=== PATIENT | female | born 1960 | race Caucasian/White ===

== ENCOUNTER → 2020-03-07 | Day surgery (SDC) | payer MEDICAID ==
[~2020-03-07] MED LIST: EPINEPHrine 10 ML SYRINGE (0.1 MG/ML) MISCELLANE ONE; IV FLUID CONTINUATION 1,000 ML IV ONE; LACTATED RINGERS 1,000 ML IV ONE; LACTATED RINGERS 1,000 ML IV SCH; LIDOCAINE 1% (10MG/ML) FOR IV START INTRADERMA PRN; LIDOCAINE 1% INJ 10MG/ML (20 ML MDV) ONE; ONDANSETRON 4 MG/2 ML VIAL ONE; PROPOFOL 10 MG/ML 20 ML VIAL IV ONE; SUCCINYLCHOLINE CHLORIDE 100 MG/5 ML SYR IV ONE; fentaNYL (PF) 50 MCG/ML 2 ML AMP ONE
[2020-03-07 10:35] LABS: Glucose,Whole Blood 108 mg/dL (75-99)
--- NOTE | 2020-03-07 11:03 | XR ---
EXAMINATION TYPE: XR chest 2V DATE OF EXAM: 03/07/2020 HISTORY: Shortness of breath. pre op bronch COMPARISON: None. TECHNIQUE: Single view of the chest is submitted. FINDINGS: Demonstrated are scattered senescent parenchymal change. Airspace consolidation throughout the right lung persists. Correlate for underlying pneumonia. The le ft lung is relatively clear. The heart is stable. Hilar and mediastinal structures are within normal limits. Degenerative changes are seen of the dorsal spine. IMPRESSION: 1. Airspace consolidation throughout the right lung persists. Correlate for underlying pneumonia. Th e left lung is relatively clear.
[2020-03-07 11:16] LABS: Basophils # (A) 0.1 k/uL (0-0.2); Basophils % (A) 0 %; Eosinophils # (A) 0.3 k/uL (0-0.7); Eosinophils % (A) 2 %; HCT 49.7 % (34.0-46.0); HGB 15.5 gm/dL (11.4-16.0); Lymphocytes # (A) 1.2 k/uL (1.0-4.8); Lymphocytes % (A) 7 %; MCH 27.9 pg (25.0-35.0); MCHC 31.1 g/dL (31.0-37.0); MCV 89.6 fL (80.0-100.0); Mean Platelet Volume 8.2; Monocytes # (A) 0.9 k/uL (0-1.0); Monocytes % (A) 5 %; Neutrophils # (A) 13.9 k/uL (1.3-7.7); Neutrophils % (A) 84 %; Platelet Count 356 k/uL (150-450); RBC 5.55 m/uL (3.80-5.40); RDW 13.6 % (11.5-15.5); WBC 16.4 k/uL (3.8-10.6)
[2020-03-07 11:29] LABS: INR 1.1 (<1.2); Partial Thromboplastin Time 25.6 sec (22.0-30.0); Prothrombin Time 11.1 sec (9.0-12.0)
--- NOTE | 2020-03-07 12:51 | FL ---
Fluoroscopy INDICATION: Pain FINDINGS: Fluoroscopy time: 27 seconds. Images obtained: 1. IMPRESSIONS: 1. Documentation of fluoroscopy.
[2020-03-07 12:53] VITALS: TEMP 96.5
[2020-03-07 13:13] VITALS: BP 113/72; PULSE 103; RESP 18
--- NOTE | 2020-03-07 13:27 | XR ---
EXAMINATION TYPE: XR chest 1V portable DATE OF EXAM: 03/07/2020 COMPARISON: 03/07/2020 earlier exam INDICATION: Post bronchoscopy multiple right-sided biopsies TECHNIQUE: Frontal chest view is obtained. FINDINGS: The heart size is normal. The pulmonary vasculature is normal. Right upper and right lower lobe infiltrates are present. There is mild elevation of the minor fissur e. Some resolving atelectasis could be considered. Pneumonia including atypical pneumonia should be c onsidered.. IMPRESSION: 1. No pneumothorax post bronchoscopy. 2. Diffuse infiltrate within the right lung
--- NOTE | 2020-03-24 22:39 | P.PCN ---
Date of Procedure: 03/07/20 Preoperative Diagnosis: Right lower lobe persistent pneumonia Postoperative Diagnosis: As above Procedure(s) Performed: Bronchoscopy, bronchial lavage, transbronchial lung biopsy under fluoroscopy Anesthesia: MAC Surgeon: Ottoniel Ali Condition: stable Disposition: same day Indications for Procedure: As above Operative Findings: As below Description of Procedure: Patient prepared and draped in the usual fashion, fiberoptic bronchoscope was passed through the right nares, the vocal cords were inspected normal structure and function, tip of the scope was passed into the lungs, trachea was normal, right upper lobe right middle lobe and right lower inspected, right lower lobe s omewhat appears to be slightly narrowed, but no endobronchial mass or lesion was seen, left side was inspected subsequently left upper lobe lingular lobe and left lower lobe along with subsegment inspected no endobronchial mass or lesion identified tip of the scope was wedged in the the right lower lobe, BAL was performed from the right lower lobe followed by under fluoroscopy guidance multiple transbronchial biopsies were done, patient tolerated the procedure well no bleeding identified post procedure chest x-ray reviewed no significant pneumothorax was seen
== END ==
LOC: ORWHC2ENDO 10:07
PROVIDERS: ATTEND Internal Medicine Sleep Medicine
DX: C34.31 Malignant neoplasm of lower lobe, right bronchus or lung (principal); J84.9 Interstitial pulmonary disease, unspecified; J18.9 Pneumonia, unspecified organism; I10 Essential (primary) hypertension; K21.9 Gastro-esophageal reflux disease without esophagitis; K08.89 Other specified disorders of teeth and supporting structures; Z98.811 Dental restoration status; Z79.51 Long term (current) use of inhaled steroids; Z79.899 Other long term (current) drug therapy; Z87.891 Personal history of nicotine dependence
CPT/HCPCS: 87798 ×4; 87541; 87496; 87498; 87529; 85025; 85610; 85730; 87252; 87502; 87634; 87070; 87205; 87116; 87102; 87206; 87635; 71045; 71046; 31628; 31624; J2405; J2001; J0171; J3010; J0330; J2704; 88305; 88341; 88342